=== PATIENT | female | born 1965 | race Caucasian/White ===

== ENCOUNTER 2022-05-18 23:07 | Inpatient (IN) | payer OTHER ==
[~2022-05-18] VITALS: Ht 165.1 cm; Wt 72.6 kg
[~2022-05-18 23:07] MED LIST: ETOMIDATE 20 MG/10 ML VIAL IV ONE; SUCCINYLCHOLINE CHLORIDE 200 MG/10 ML VIAL IV ONE
[2022-05-18] MEDS ORDERED: IV NORMAL SALINE 1000 ML BAG IV ONE (23:15)
[2022-05-18] MEDS ORDERED: PROCHLORPERAZINE EDISYLATE 10 MG/2 ML VIAL IV ONE (23:15)
[2022-05-18 23:35] LABS: HEMATOCRIT 38.5 % (31.2-41.9); MEAN CORPUSCULAR HEMOGLOBIN 29.6 uug (24.7-32.8); MEAN CORPUSCULAR VOLUME 89.3 fL (75.5-95.3); PLATELET COUNT (AUTO) 422 K/uL (179-408)
[2022-05-18] MEDS ORDERED: PROCHLORPERAZINE EDISYLATE 10 MG/2 ML VIAL ONE (23:39)
--- NOTE | 2022-05-18 23:42 | NUR ---
Xray at bedside.
[2022-05-18 23:55] LABS: ALANINE AMINOTRANSFERASE 21 U/L (14-59); ALKALINE PHOSPHATASE 102 U/L (50-136); ASPARTATE AMINOTRANSFERASE 13 U/L (15-37); BILIRUBIN,DIRECT 0.1 mg/dL (0.0-0.2); BILIRUBIN,TOTAL 0.2 mg/dL (0.2-1.0); CARBON DIOXIDE 28 mmol/L (21-32); CHLORIDE 102 mmol/L (98-107); CREATININE 0.9 mg/dL (0.6-1.3); GLUCOSE 198 mg/dL (74-106); POTASSIUM 3.7 mmol/L (3.5-5.1); TOTAL PROTEIN, SERUM 7.3 g/dL (6.4-8.2); UREA NITROGEN, BLOOD 16 mg/dL (7-18)
[2022-05-18 23:56] LABS: ETHANOL < 3 MG/DL (0-0)
[2022-05-18 23:57] LABS: ACETAMINOPHEN < 2.0 ug/mL (10-30)
[2022-05-19 00:11] LABS: ABG BASE EXCESS -0.6 mmol/L; ABG PH 7.286 (7.350-7.450); ABG PO2 57.4 mmHg (75.0-100.0); ABG SITE RIGHT RADIAL; ABG TOTAL HEMOGLOBIN 12.8 G/dL (12.0-16.0); COHb 2.4 % (0.5-1.5); MetHb 0.2 % (0.0-1.5); O2Hb 85.3 % (94.0-97.0); VENT MODE Nasal Cannula
[2022-05-19] MEDS ORDERED: NALOXONE HCL 0.4 MG/ML AMPUL IV ONE (00:15)
[2022-05-19] MEDS ORDERED: NALOXONE 2 MG/2 ML SYRINGE ONE (00:16)
--- NOTE | 2022-05-19 00:52 | NUR ---
Pt states unable to provide urine at this time. made aware.
[2022-05-19] MEDS ORDERED: ALBUTEROL SULFATE 2.5 MG/3 ML NEBU NEB ONE (01:15)
[2022-05-19] MEDS ORDERED: IPRATROPIUM BROMIDE 0.5 MG/2.5 ML NEBU NEB ONE (01:15)
[2022-05-19] MEDS ORDERED: IV NS 1000 ML 1,000 ML IV ONE (01:15)
[2022-05-19] MEDS ORDERED: ALBUTEROL SULFATE 2.5 MG/3 ML NEBU ONE (01:20)
[2022-05-19] MEDS ORDERED: IPRATROPIUM BROMIDE 0.5 MG/2.5 ML NEBU ONE (01:20)
[2022-05-19] MEDS ORDERED: IOHEXOL 350 100 ML INFUS..BTL ONE (02:14)
[2022-05-19] MEDS ORDERED: IV NORMAL SALINE 250 ML IV ONE (02:14)
[2022-05-19] MEDS ORDERED: SWABABLE VALVE TRANSFER SET EA MC ONE (02:14)
--- NOTE | 2022-05-19 02:32 | NUR ---
Pt out of ER for CT.
--- NOTE | 2022-05-19 02:45 | NUR ---
Pt back to ER from CT.
[2022-05-19 04:17] LABS: *BILIRUBIN,URIN NEGATIVE (NEGATIVE); *BLOOD, URINE NEGATIVE (NEGATIVE); *CLARITY,URINE CLEAR (CLEAR); *COLOR,URINE YELLOW (YELLOW); *KETONES,URINE NEGATIVE (NEGATIVE); *UROBILINOGEN,URINE 0.2 E.U./dl (NORMAL); LEUKOCYTE ESTERASE ,URINE TRACE (NEGATIVE); NITRITE, URINE NEGATIVE (NEGATIVE); UGLUCOSE NEGATIVE (NEGATIVE)
[2022-05-19 04:23] LABS: *AMPHETAMINE, URINE POSITIVE (NEGATIVE); *CANNABINOID, URINE NEGATIVE (NEGATIVE); *COCCAINE, URINE POSITIVE (NEGATIVE); *OPIATE, URINE NEGATIVE (NEGATIVE); *PHENCYCLIDINE SCREEN,URINE NEGATIVE (NEGATIVE)
[2022-05-19] MEDS ORDERED: METRONIDAZOLE 500 MG/NS 100 ML PIGGYBACK IV ONE (05:45)
[2022-05-19] MEDS ORDERED: CEFTRIAXONE 1 G in IV DEXTROSE 5% 50 ML IV ONE (05:45)
[2022-05-19] MEDS ORDERED: CEFTRIAXONE /D5W 50ML IVPB **ER PYXIS IV ONE (05:53)
--- NOTE | 2022-05-19 05:57 | NUR ---
Dr. Nesbitt on panel call with Scarlet Rowan NP.
[2022-05-19] MEDS ORDERED: METRONIDAZOLE 500 MG/NS 100ML 100 ML IV ONE (05:58)
[2022-05-19] MEDS ORDERED: IPRATROPIUM BROMIDE 0.5 MG/2.5 ML NEBU NEB PRN (06:00)
[2022-05-19] MEDS ORDERED: ALBUTEROL SULFATE 2.5 MG/ 0.5 ML NEBU NEB PRN (06:00)
[2022-05-19] MEDS ORDERED: PIPERACILLIN SODIUM/TAZOBACTAM 3.375 G in IV DEXTROSE 5% 50 ML IV SCH (06:00)
[2022-05-19] MEDS ORDERED: ENOXAPARIN SODIUM 40 MG/0.4 ML DISP.SYRIN SQ SCH (06:00)
[2022-05-19 06:10] LABS: ABG BASE EXCESS -3.4 mmol/L; ABG PCO2 76.6 mmHg (35.0-45.0); ABG PH 7.165 (7.350-7.450); ABG PO2 91.1 mmHg (75.0-100.0); ABG SITE LEFT RADIAL; ABG TOTAL HEMOGLOBIN 13.7 G/dL (12.0-16.0); COHb 1.1 % (0.5-1.5); MetHb 0.3 % (0.0-1.5); O2Hb 94.6 % (94.0-97.0); VENT MODE BIPAP; VT, ABG 219 mL
--- NOTE | 2022-05-19 06:15 | NUR ---
RT at bedside.
--- NOTE | 2022-05-19 06:24 | NUR ---
etomidate 15mg given
--- NOTE | 2022-05-19 06:25 | NUR ---
Patient was intubated by Dr. Nesbitt, ET tube 7.5 @ 21 cm right lip line. Placed on SIMV 15, Vt 500ml, Peep 5, PS 10, FIO2 50%. Addendum: 05/19/22 at 0703 by JOSELUIS DUEÑAS RT Amended: Links added.
--- NOTE | 2022-05-19 06:25 | NUR ---
Succinylcholine 100mg given
--- NOTE | 2022-05-19 06:27 | NUR ---
Pt intubated by Dr. Nesbitt.
[2022-05-19 06:41] LABS: HEMATOCRIT 38.4 % (31.2-41.9); MEAN CORPUSCULAR HEMOGLOBIN 29.3 uug (24.7-32.8); MEAN CORPUSCULAR VOLUME 89.7 fL (75.5-95.3); PLATELET COUNT (AUTO) 345 K/uL (179-408)
[2022-05-19] MEDS ORDERED: PROPOFOL 100 ML ONE ×2 (06:44→17:44)
[2022-05-19] MEDS ORDERED: PROPOFOL 100 ML IV PRN (06:45)
--- NOTE | 2022-05-19 07:14 | NUR ---
Report given to Charissa loredo.
--- NOTE | 2022-05-19 07:20 | NUR ---
Received endorsement from Kemal MCKEON
--- NOTE | 2022-05-19 07:30 | NUR ---
Increased Propofol drip from 10 to 15mcg/kg/min d/t pt's coming out of sedation and pulling of tubes. INFORMATION MANAGEMENT SPECIALIST informed.
[2022-05-19 08:16] LABS: THYROID STIMULATING HORMONE 0.845 mIU/mL (0.358-3.740)
[2022-05-19] MEDS ORDERED: PIPERACILLIN/TAZOBACTAM/D5W 50 ML IV ONE (08:55)
[2022-05-19] MEDS ORDERED: ENOXAPARIN SODIUM 40 MG/0.4 ML DISP.SYRIN SQ ONE (08:55)
[2022-05-19] MEDS ORDERED: PANTOPRAZOLE SODIUM 40 MG VIAL ONE (09:24)
[2022-05-19 09:25] LABS: ABG HCO3 26.1 mmol/L; ABG PCO2 59.9 mmHg (35.0-45.0); ABG PH 7.257 (7.350-7.450); ABG PO2 69.6 mmHg (75.0-100.0); ABG SITE RIGHT RADIAL; ABG TOTAL HEMOGLOBIN 13.2 G/dL (12.0-16.0); COHb 0.8 % (0.5-1.5); CPAP,BG 10 cmH20; MetHb 0.3 % (0.0-1.5); O2Hb 92.2 % (94.0-97.0); VENT MODE VENT - SIMV; VT, ABG 500 mL
[2022-05-19 09:32] LABS: RBC,URINE 0-3 /HPF (0-3)
[2022-05-19 09:33] LABS: BACTERIA,URINE FEW /HPF (NONE SEEN); SQUAMOUS EPITHELIAL CELL,UR FEW /HPF (NONE SEEN)
--- NOTE | 2022-05-19 09:50 | NUR ---
Received ABG results from RT, Daniella SANCHEZ notified.
[2022-05-19] MEDS: PANTOPRAZOLE SODIUM 40 MG VIAL IV SCH (09:52)
[2022-05-19] MEDS ORDERED: ALBUTEROL SULFATE 2.5 MG/3 ML NEBU NEB PRN (12:00)
--- NOTE | 2022-05-19 12:32 | NUR ---
Received new order from Daniella Ho for parikh catheter insertion.
--- NOTE | 2022-05-19 12:50 | NUR ---
Inserted f/c 18Fr. Urine specimen sent to lab.
--- NOTE | 2022-05-19 13:00 | NUR ---
Increased Propofol drip from 15 to 20 mcg/kg/hr. AUTO MECHANIC APPRENTICE notified.
[2022-05-19 13:22] LABS: *BILIRUBIN,URIN NEGATIVE (NEGATIVE); *BLOOD, URINE NEGATIVE (NEGATIVE); *CLARITY,URINE CLEAR (CLEAR); *COLOR,URINE YELLOW (YELLOW); *KETONES,URINE NEGATIVE (NEGATIVE); *UROBILINOGEN,URINE 0.2 E.U./dl (NORMAL); LEUKOCYTE ESTERASE ,URINE NEGATIVE (NEGATIVE); NITRITE, URINE NEGATIVE (NEGATIVE); UGLUCOSE NEGATIVE (NEGATIVE)
[2022-05-19 13:44] LABS: BACTERIA,URINE NONE SEEN /HPF (NONE SEEN); RBC,URINE 0-3 /HPF (0-3); SQUAMOUS EPITHELIAL CELL,UR FEW /HPF (NONE SEEN); WBC,URINE NONE SEEN /HPF (0-3)
[2022-05-19] MEDS ORDERED: METRONIDAZOLE 500 MG/NS 100ML 500 MG in PREMIXED 1 EACH IV SCH (14:00)
--- NOTE | 2022-05-19 15:13 | NUR ---
Pt's mother's tire and lube technician stated not to give pt vaccination without her consent.
--- NOTE | 2022-05-19 15:54 | NUR ---
Pt has been hypotensive, from 97/52 @1515 to 85/54 @1546. Notified Daniella Ho, received telephone order Levophed to be titrate to BP above 90 and continuous NS @ 90cc/hr.
[2022-05-19] MEDS ORDERED: NOREPINEPHRINE BITARTRATE 8 MG in IV DEXTROSE 5% 250 ML IV ONE (16:00)
[2022-05-19] MEDS ORDERED: NOREPINEPHRINE BITARTRATE 8 MG in IV NORMAL SALINE 242 ML IV PRN (16:15)
--- NOTE | 2022-05-19 17:10 | NUR ---
Pt remains intubated on CMV, Fio2 titrated to 40%. Spo2 and respirations wnl. ETT repositioned Q2. ETT/oral sxn prn. Will continue to monitor.
[2022-05-19] MEDS: IV NS 1000 ML 1,000 ML IV PRN (17:27)
[2022-05-19] MEDS: PIPERACILLIN SODIUM/TAZOBACTAM 3.375 G in IV DEXTROSE 5% 100 ML IV SCH (18:00)
--- NOTE | 2022-05-19 18:08 | NUR ---
IV Zosyn on piggyback with Propofol, compatible per pharmacist Xenia.
--- NOTE | 2022-05-19 19:09 | NUR ---
Endorsed to Aravind WOODS.
--- NOTE | 2022-05-19 22:15 | NUR ---
Emptied 650 cc urine from parikh catheter.
[2022-05-20] MEDS ORDERED: PROPOFOL 100 ML ONE ×4 (01:16→16:52)
[2022-05-20] MEDS: PIPERACILLIN SODIUM/TAZOBACTAM 3.375 G in IV DEXTROSE 5% 100 ML IV SCH ×3 (01:30→17:44)
--- NOTE | 2022-05-20 05:00 | NUR ---
Pt awoke, IV to right wrist pulled. Increased propofol to 50.
[2022-05-20 06:24] LABS: HEMATOCRIT 32.3 % (31.2-41.9); MEAN CORPUSCULAR HEMOGLOBIN 29.2 uug (24.7-32.8); MEAN CORPUSCULAR VOLUME 89.4 fL (75.5-95.3); PLATELET COUNT (AUTO) 311 K/uL (179-408)
[2022-05-20 06:40] LABS: BILIRUBIN,TOTAL 0.5 mg/dL (0.2-1.0); CREATININE 0.8 mg/dL (0.6-1.3); MAGNESIUM 1.9 mg/dL (1.8-2.4); PHOSPHOROUS 2.1 mg/dL (2.5-4.9); POTASSIUM 3.6 mmol/L (3.5-5.1)
--- NOTE | 2022-05-20 07:12 | NUR ---
Report given to Charissa loredo.
--- NOTE | 2022-05-20 07:17 | NUR ---
Received endorsement from Aravind MCKEON
[2022-05-20] MEDS: PROPOFOL 100 ML IV PRN ×4 (07:52→23:18)
[2022-05-20] MEDS ORDERED: ENOXAPARIN SODIUM 40 MG/0.4 ML DISP.SYRIN SQ ONE (09:08)
[2022-05-20] MEDS ORDERED: PANTOPRAZOLE SODIUM 40 MG VIAL ONE (09:08)
[2022-05-20] MEDS: ENOXAPARIN SODIUM 40 MG/0.4 ML DISP.SYRIN SQ SCH (09:14)
[2022-05-20] MEDS: PANTOPRAZOLE SODIUM 40 MG VIAL IV SCH (09:14)
[2022-05-20] MEDS: IV NS 1000 ML 1,000 ML IV PRN (09:21)
--- NOTE | 2022-05-20 10:11 | NUR ---
SBP >90, 151/87. Held Levophed.
--- NOTE | 2022-05-20 10:20 | NUR ---
Called RT, O2 sat to 87%. RT increased volume to 550ml and 50%. Dr. Grant ordered to increase PEEP to 8, O2 sat to 97%. Noted and carried out.
--- NOTE | 2022-05-20 10:47 | NUR ---
BP =92/48. Restarting Levophed.
[2022-05-20] MEDS ORDERED: LAMO200T10 PO (12:56)
[2022-05-20] MEDS ORDERED: ESCI10TA PO (12:56)
[2022-05-20] MEDS ORDERED: BUPR300T52 PO (12:56)
--- NOTE | 2022-05-20 13:40 | NUR ---
Seen by Daniella Ho NP. Ordered PICC Line. Informed nsg reverberatory furnace supervisor for request.
[2022-05-20] MEDS ORDERED: POTASSIUM PHOSPHATE MM 15 MMOL in IV NORMAL SALINE 250 ML IV ONE (16:45)
--- NOTE | 2022-05-20 17:01 | NUR ---
Central Line performed by Dr. Soares. Informed Consent obtained from the mother of the pt by Daniella Ho NP via phone. Will be signed by Daniella Ho when she arrives tomorrow per PRODUCTION MACHINE TENDER.
--- NOTE | 2022-05-20 17:03 | NUR ---
Central line @ the Susie zarate, patent and intact.
--- NOTE | 2022-05-20 18:53 | NUR ---
Urine Output from 7a-7p = 595ml.
--- NOTE | 2022-05-20 19:10 | NUR ---
Endorsed to Aravind WOODS.
--- NOTE | 2022-05-20 20:15 | NUR ---
Report given to Fariha WOODS CCU.
[2022-05-20 20:56] VITALS: BP 164/80
[2022-05-20 22:15] VITALS: BP 101/61
[2022-05-20 22:30] VITALS: BP 108/62
[2022-05-20 22:45] VITALS: BP 101/58
[2022-05-21] VITALS (24 sets, daily range): BP systolic 95–143; BP diastolic 56–79
[2022-05-21] MEDS: PIPERACILLIN SODIUM/TAZOBACTAM 3.375 G in IV DEXTROSE 5% 100 ML IV SCH ×3 (00:51→17:30)
[2022-05-21] MEDS: PROPOFOL 100 ML IV PRN ×6 (02:08→23:32)
[2022-05-21 06:14] LABS: CREATININE 0.7 mg/dL (0.6-1.3); PHOSPHOROUS 2.8 mg/dL (2.5-4.9); POTASSIUM 3.1 mmol/L (3.5-5.1)
--- NOTE | 2022-05-21 06:18 | NUR ---
END SHIFT SUMMARY Patient arrived on the unit via bed accompanied by RN. Patient's vital signs are stable. No sign of distress noted. Pt is intubated and sedated on propofol and has levophed for BP support. Pt remained off of levophed since she arrived on the unit and did not require BP support. Pt remained sedated on 50 mcg/kg/min propofol and awakes easily and quickly when propofol is turned off. Pt still requires 50 mcg or else she becomes severely irritated. Bed bath given to pt, some vaginal bleeding noted similar to menstrual bleeding. Pad in put in place. Otherwise, no sign of distress noted. Report endorsed to day shift RN.
[2022-05-21 06:48] LABS: HEMATOCRIT 28.7 % (31.2-41.9); MEAN CORPUSCULAR HEMOGLOBIN 30.6 uug (24.7-32.8); MEAN CORPUSCULAR VOLUME 88.9 fL (75.5-95.3); PLATELET COUNT (AUTO) 294 K/uL (179-408)
--- NOTE | 2022-05-21 07:15 | NUR ---
Received pt. on soft restrains arousable to verbal command. with oral care pt. fully awake, restless agitated, backing up ventilator, attempting to get out of bed, pulling on restrains, Throwing her BLE out of side rails. ETT 7.5, 24LL on A/C 20, TV 550, FIO2 40%, Peep +5. Hemodynamically HR in the in the NSR and quickly went up to the 120's. parikh to gravity. propofol running at 50mcg/kg/min. Will continue to monitor
--- NOTE | 2022-05-21 07:18 | NUR ---
With morning care pt. became restless agitated, backing up ventilator on BUE soft restrains pt. kicking. For pt. safety propofol increased accordingly. Attending called and notify of events, see order hx.
[2022-05-21 08:23] LABS: ABG BASE EXCESS -3.2 mmol/L; ABG HCO3 20.9 mmol/L; ABG PCO2 34.1 mmHg (35.0-45.0); ABG PH 7.405 (7.350-7.450); ABG PO2 73.5 mmHg (75.0-100.0); ABG SITE RIGHT RADIAL; ABG TOTAL HEMOGLOBIN 10.8 G/dL (12.0-16.0); COHb 0.3 % (0.5-1.5); MetHb 0.2 % (0.0-1.5); O2Hb 94.6 % (94.0-97.0); VENT MODE VENT - A/C 20; VT, ABG 550 mL
[2022-05-21] MEDS: PANTOPRAZOLE SODIUM 40 MG VIAL IV SCH (08:23)
[2022-05-21] MEDS: ENOXAPARIN SODIUM 40 MG/0.4 ML DISP.SYRIN SQ SCH (08:27)
[2022-05-21] MEDS: IV NS 1000 ML 1,000 ML IV PRN (09:43)
[2022-05-21] MEDS: POTASSIUM CHLORIDE 50 ML IV SCH ×4 (11:00→13:35)
--- NOTE | 2022-05-21 11:54 | NUR ---
Pulmonary services, Dr. Grant in the unit orders to continue with care plan received and ok to continue with propofol maximum of 100mcg/kg/min. and to start pt. on jevity at 20cc/hr increase by 10cc.hr max of 40 until seen by division field inspector.
--- NOTE | 2022-05-21 12:00 | NUR ---
Pt's mom and boyfriend at bedside at this time pt's boyfriend Donny Slade stating "no has spoken to us regarding the care plan, at this time pt. restless and agitated, and Mr. Foss questioning why pt. is not adequately sedated. Mr. Foss and Mom educated on propofol use in this particular situation, and he was updated that was called and pt. now on two medications to properly sedate her. Mr. Foss also requested a call from attending.
[2022-05-21] MEDS ORDERED: JEVITY 1.2 1000 ML LIQUID GT PRN ×2 (12:15)
--- NOTE | 2022-05-21 13:00 | NUR ---
Attending Daniella Ho in to follow up on pt. report given orders to continue with care plan received and implemented. Addendum: 05/21/22 at 1802 by DEREK SHER RN Attending also informed of Mr. Hines and pt's mom request, and I was informed at this time family was updated.
[2022-05-21] MEDS: LORAZEPAM 2 MG/1 ML VIAL IV PRN (13:49)
--- NOTE | 2022-05-21 17:56 | NUR ---
Patient adequately sedated restrains dcd as ordered.
[2022-05-22] VITALS (24 sets, daily range): BP systolic 96–142; BP diastolic 57–81
[2022-05-22] MEDS: PIPERACILLIN SODIUM/TAZOBACTAM 3.375 G in IV DEXTROSE 5% 100 ML IV SCH ×3 (01:23→16:08)
--- NOTE | 2022-05-22 01:29 | NUR ---
PATIENT ON CONT PB 840 VENT WITH 7.5 ET/TUBE IN PLACE AND SECURED WITH ANCHOR FAST, CURRENT SETTINGS, A/C 20 VT 500ML, PEEP8, FIO2 2 405, PT WITH MOSTLY CONTROLLED VENTILATION, PT IS SEDATED , SUCTIONED WHITISH TINGE SECRETIONS, AND ORAL CARE, NO VENT CHANGES MADE, CHANGE HME, ALL ALARMS GOOD, ABG ON DAY SHIFT, YAIR CLEMENT RCP Addendum: 05/22/22 at 0132 by CASIMIRO SOSA Amended: Links added. Addendum: 05/22/22 at 0358 by CASIMIRO SOSA CORRECTION FIO2 @ 40%, PEEP 8 D RACQUEL MARTELL
[2022-05-22] MEDS: PROPOFOL 100 ML IV PRN ×6 (02:06→21:34)
[2022-05-22 05:12] LABS: HEMATOCRIT 27.9 % (31.2-41.9); MEAN CORPUSCULAR HEMOGLOBIN 29.9 uug (24.7-32.8); MEAN CORPUSCULAR VOLUME 88.8 fL (75.5-95.3); PLATELET COUNT (AUTO) 280 K/uL (179-408)
[2022-05-22 05:22] LABS: CREATININE 0.6 mg/dL (0.6-1.3); POTASSIUM 3.2 mmol/L (3.5-5.1)
--- NOTE | 2022-05-22 06:00 | NUR ---
--PT CONT. WITH ETT-VENT. PT GAVIN WELL WITH POX OF 98-99%. PT GAVIN RTX AND SX WELL. PT HAS MOD OF PALE WHIT SPUT. HOB UP> 30 DEGEES.VS HAVE BEEN STABLE. AFEBRILE. S.R. PT HAS ALSO BEEN SEDATED WITH DIPRIVAN DRIP-WAS AT 90MCG/NOW IS DOWN TO 40MCG. PT GAVIN WELL. IV I/P VIA LEFT FEM.TLC. PT ALSO HAS NS IV@ 50CC/HR. AM LABS DONE. PT HAS T.FEEDG VIA NGT OF JEVITY. RESID IS 5-10CC. PT HAS F/C-U/O 450CC-DARK JANNA TO SLIGHT GRN COLOR/CLR. NO STOOL. PT HAS SCD ON BOTH LOWER EXTREMITIES. BATH AND LINEN CHANGE DONE. GEN. COND HAS BEEN STABLE/GUARDED. PT ENDORSED TO PEGGY REED. THUY WOODS
--- NOTE | 2022-05-22 07:00 | NUR ---
Recieved patient from manufacturing supervisor 2nd shift nurse. Pt was restless and agitated on 40 mcg/kg/min. pt is intubated ET tube 7.0 AC20, TV 550, FIO2 40% PEEP 8. Pt has SCDs on with OG tube with Jevity @ 30 ml/hr
[2022-05-22] MEDS: ENOXAPARIN SODIUM 40 MG/0.4 ML DISP.SYRIN SQ SCH (08:14)
[2022-05-22] MEDS: PANTOPRAZOLE SODIUM 40 MG VIAL IV SCH (08:14)
[2022-05-22 08:19] LABS: ABG BASE EXCESS -2.6 mmol/L; ABG HCO3 21.2 mmol/L; ABG PCO2 33.3 mmHg (35.0-45.0); ABG PH 7.422 (7.350-7.450); ABG PO2 85.8 mmHg (75.0-100.0); ABG SITE LEFT BRACHIAL; ABG TOTAL HEMOGLOBIN 10.9 G/dL (12.0-16.0); COHb 0.3 % (0.5-1.5); MetHb 0.2 % (0.0-1.5); O2Hb 96.3 % (94.0-97.0); VENT MODE VENT - A/C; VT, ABG 550 mL
--- NOTE | 2022-05-22 08:39 | NUR ---
pt fighting ventilator and respiratory rate increased to 50. Diprovan increased to 60 mcg/kg/hr to sedate patient.
[2022-05-22] MEDS: LORAZEPAM 2 MG/1 ML VIAL IV PRN ×2 (09:35→15:11)
[2022-05-22] MEDS: POTASSIUM CHLORIDE 50 ML IV SCH ×4 (09:35→12:58)
[2022-05-22] MEDS ORDERED: JEVITY 1.2 1000 ML LIQUID GT PRN ×2 (09:58)
--- NOTE | 2022-05-22 15:30 | NUR ---
pt is waking up and becoming agitated and restless. Ativan given and then when it was ineffective Diprovan increased to 70 mch/kg/min
--- NOTE | 2022-05-22 15:45 | NUR ---
pt is awake and fighting the ventilator and biting the ET tube and at risk for self extubation. Previous increase to 70 mcg/kg/hr ineffective. Rate increade to 90 mcg/kg/hr and pt is now adequately sedated.
--- NOTE | 2022-05-22 22:28 | NUR ---
pt transferred to room 311 with Vincent and other RN from 3rd floor
[2022-05-23] VITALS (24 sets, daily range): BP systolic 119–179; BP diastolic 72–96
[2022-05-23] MEDS: PIPERACILLIN SODIUM/TAZOBACTAM 3.375 G in IV DEXTROSE 5% 100 ML IV SCH ×3 (00:45→16:30)
[2022-05-23] MEDS: PROPOFOL 100 ML IV PRN ×4 (02:56→10:28)
[2022-05-23 05:12] LABS: HEMATOCRIT 28.1 % (31.2-41.9); MEAN CORPUSCULAR HEMOGLOBIN 29.7 uug (24.7-32.8); PLATELET COUNT (AUTO) 329 K/uL (179-408)
[2022-05-23 05:26] LABS: CREATININE 0.5 mg/dL (0.6-1.3); POTASSIUM 3.6 mmol/L (3.5-5.1)
[2022-05-23] MEDS: PANTOPRAZOLE SODIUM 40 MG VIAL IV SCH (08:24)
[2022-05-23] MEDS: ENOXAPARIN SODIUM 40 MG/0.4 ML DISP.SYRIN SQ SCH (09:00)
--- NOTE | 2022-05-23 11:09 | NUR ---
ABG drawn at bedside. On CPAP FIO2 tolerating well.
--- NOTE | 2022-05-23 12:05 | NUR ---
Opens eyes and tracks remains on CPAP tolerating well propofol decreased to 30mcgs tolerating well oxygen saturation >94% respiratory rate 30 per minute.
[2022-05-23] MEDS: CHLORDIAZEPOXIDE HCL 25 MG CAPSULE PO SCH ×2 (13:00→16:30)
[2022-05-23] MEDS: LORAZEPAM 2 MG/1 ML VIAL IV PRN ×2 (13:23→21:50)
[2022-05-23 13:40] LABS: ABG BASE EXCESS -0.6 mmol/L; ABG HCO3 22.7 mmol/L; ABG PCO2 32.4 mmHg (35.0-45.0); ABG PH 7.463 (7.350-7.450); ABG PO2 80.7 mmHg (75.0-100.0); ABG SITE LEFT BRACHIAL; ABG TOTAL HEMOGLOBIN 10.8 G/dL (12.0-16.0); COHb 0.3 % (0.5-1.5); MetHb 0.3 % (0.0-1.5); O2Hb 95.6 % (94.0-97.0); VENT MODE VENT - SIMV; VT, ABG 550 mL
[2022-05-23 13:40] LABS: ABG BASE EXCESS -0.3 mmol/L; ABG PCO2 38.4 mmHg (35.0-45.0); ABG PH 7.414 (7.350-7.450); ABG PO2 79.4 mmHg (75.0-100.0); ABG SITE LEFT RADIAL; ABG TOTAL HEMOGLOBIN 13.7 G/dL (12.0-16.0); COHb 0.4 % (0.5-1.5); MetHb 0.4 % (0.0-1.5); O2Hb 95.1 % (94.0-97.0); VENT MODE VENT - CPAP
--- NOTE | 2022-05-23 13:58 | NUR ---
Non rebreather on 15 liters calm at this time opens eyes tracks at times, delmi occasionally says "uh huh" Lethargic Ativan 2 mg IV given for restlessness and sweating. [place], warm, and dry pupils 2 and reactive to light accommodations. Moves all extremities Restraints soft wrist ordered for safety.
--- NOTE | 2022-05-23 14:12 | NUR ---
Awake but does not follow commands tracks with eyes at time. Called CEMENT RAILROAD CAR LOADER Daniella hr 115 bp 160/100 RT requesting repeat blood gas.
--- NOTE | 2022-05-23 14:18 | NUR ---
New orders for blood gas only does not want to treat b/p or heart rate at this time due to post intubation.
--- NOTE | 2022-05-23 14:19 | NUR ---
Gave 0900 Lovenox sub Q unable to sign off mar no one has witness access on unit.
[2022-05-23 15:23] LABS: ABG BASE EXCESS 0.5 mmol/L; ABG HCO3 23.8 mmol/L; ABG PCO2 34.1 mmHg (35.0-45.0); ABG PH 7.462 (7.350-7.450); ABG PO2 55.1 mmHg (75.0-100.0); ABG SITE RIGHT RADIAL; ABG TOTAL HEMOGLOBIN 12.1 G/dL (12.0-16.0); COHb 0.3 % (0.5-1.5); MetHb 0.3 % (0.0-1.5); O2Hb 90.1 % (94.0-97.0)
[2022-05-23] MEDS: IV NS 1000 ML 1,000 ML IV PRN (21:59)
[2022-05-24] VITALS (23 sets, daily range): BP systolic 79–157; BP diastolic 63–97
[2022-05-24] MEDS: PIPERACILLIN SODIUM/TAZOBACTAM 3.375 G in IV DEXTROSE 5% 100 ML IV SCH ×3 (01:02→17:16)
[2022-05-24 05:18] LABS: HEMATOCRIT 31.9 % (31.2-41.9); MEAN CORPUSCULAR HEMOGLOBIN 29.9 uug (24.7-32.8); MEAN CORPUSCULAR VOLUME 87.2 fL (75.5-95.3); PLATELET COUNT (AUTO) 329 K/uL (179-408)
[2022-05-24 05:30] LABS: CREATININE 0.5 mg/dL (0.6-1.3); POTASSIUM 3.1 mmol/L (3.5-5.1)
[2022-05-24 05:34] LABS: MAGNESIUM 1.6 mg/dL (1.8-2.4); PHOSPHOROUS 3.4 mg/dL (2.5-4.9)
--- NOTE | 2022-05-24 07:15 | NUR ---
Received pt. restless agitated, attempting to get out of bed unsupervised. On BUE soft restrains. Hemodynamically HR in the 90's sbp within desired limits. NPO. Neuro-ocampo AAOx2, but does not follow commands. Iv line to left femoral patent. Will continue with care plan.
[2022-05-24] MEDS: PANTOPRAZOLE SODIUM 40 MG VIAL IV SCH (08:06)
[2022-05-24] MEDS: CHLORDIAZEPOXIDE HCL 25 MG CAPSULE PO SCH ×3 (08:11→17:17)
[2022-05-24] MEDS: ENOXAPARIN SODIUM 40 MG/0.4 ML DISP.SYRIN SQ SCH (08:12)
[2022-05-24] MEDS ORDERED: IPRATROPIUM BROMIDE 0.5 MG/2.5 ML NEBU NEB PRN (10:00)
[2022-05-24] MEDS ORDERED: ALBUTEROL SULFATE 2.5 MG/3 ML NEBU NEB PRN (10:00)
[2022-05-24] MEDS: POTASSIUM CHLORIDE 50 ML IV SCH ×4 (10:06→12:51)
[2022-05-24 10:08] LABS: ABG BASE EXCESS -0.5 mmol/L; ABG HCO3 21.3 mmol/L; ABG PCO2 26.6 mmHg (35.0-45.0); ABG PH 7.521 (7.350-7.450); ABG PO2 103.8 mmHg (75.0-100.0); ABG SITE LEFT BRACHIAL; ABG TOTAL HEMOGLOBIN 11.4 G/dL (12.0-16.0); COHb 0.3 % (0.5-1.5); MetHb 0.4 % (0.0-1.5); O2Hb 97.4 % (94.0-97.0); VENT MODE Nasal Cannula
[2022-05-24] MEDS: ALBUTEROL SULFATE 2.5 MG/3 ML NEBU NEB SCH ×3 (10:29→21:12)
[2022-05-24] MEDS: IPRATROPIUM BROMIDE 0.5 MG/2.5 ML NEBU NEB SCH ×3 (10:29→21:11)
[2022-05-24] MEDS: MAGNESIUM SULFATE/D5W 100 ML IV SCH ×2 (13:51→14:45)
--- NOTE | 2022-05-24 14:02 | NUR ---
2Call to follow up on needed Swallow evaluation for ccu1 who was extubated. I was informed that "we have no staff to perform the assessment at this moment" suggestions to perform one at bedside by nurse. Patient remains slightly restless and agitated. Attending will be contact to obtain approval for bedside-nurse swallow eval.
--- NOTE | 2022-05-24 14:32 | NUR ---
Attending Ok to proceed with nursing bed-side swallow, evaluation.
--- NOTE | 2022-05-24 17:04 | NUR ---
Swallow evaluation done attending notified orders received.
[2022-05-25] VITALS (20 sets, daily range): BP systolic 110–161; BP diastolic 45–93
--- NOTE | 2022-05-25 00:23 | NUR ---
Received patient in bed resting quietly. She is alert and oriented X 3. Day shift RN reported that she had very little appetite and only ate ice cream for dinner. She is cooperative with her care. PM meds given and pt is awaiting transfer to the Med Surg floor. Patient is asleep. Report endorsed to executive sous chef. Patient transferred via bed to Room 303 accompanied by Elvira Sommers RN at 0025 Vital signs stable.
[2022-05-25] MEDS: PIPERACILLIN SODIUM/TAZOBACTAM 3.375 G in IV DEXTROSE 5% 100 ML IV SCH ×3 (01:10→16:19)
[2022-05-25 04:38] LABS: BAND % (MANUAL) 3 % (0-10); NEUTROPHILS % (MANUAL) 60 % (42-75)
[2022-05-25 04:39] LABS: LYMPHOCYTES % (MANUAL) 25 % (20-40); MONOCYTES % (MANUAL) 18 % (2-10)
[2022-05-25 05:13] LABS: HEMATOCRIT 34.1 % (31.2-41.9); MEAN CORPUSCULAR HEMOGLOBIN 29.1 uug (24.7-32.8); MEAN CORPUSCULAR VOLUME 87.6 fL (75.5-95.3); PLATELET COUNT (AUTO) 365 K/uL (179-408)
[2022-05-25 05:31] LABS: CREATININE 0.6 mg/dL (0.6-1.3); POTASSIUM 3.2 mmol/L (3.5-5.1)
[2022-05-25 05:33] LABS: PHOSPHOROUS 3.7 mg/dL (2.5-4.9)
[2022-05-25] MEDS: ALBUTEROL SULFATE 2.5 MG/3 ML NEBU NEB SCH ×4 (07:33→20:45)
[2022-05-25] MEDS: IPRATROPIUM BROMIDE 0.5 MG/2.5 ML NEBU NEB SCH ×4 (07:33→20:50)
[2022-05-25] MEDS: CHLORDIAZEPOXIDE HCL 25 MG CAPSULE PO SCH (09:00)
[2022-05-25] MEDS: PANTOPRAZOLE SODIUM 40 MG VIAL IV SCH (09:00)
[2022-05-25] MEDS: ENOXAPARIN SODIUM 40 MG/0.4 ML DISP.SYRIN SQ SCH (09:02)
[2022-05-25] MEDS ORDERED: POTASSIUM CHLORIDE 20 MEQ TAB.PRT.SR PO ONE (09:30)
[2022-05-25 10:49] LABS: ABG BASE EXCESS 0.1 mmol/L; ABG HCO3 22.8 mmol/L; ABG PCO2 30.7 mmHg (35.0-45.0); ABG PH 7.488 (7.350-7.450); ABG PO2 74.9 mmHg (75.0-100.0); ABG SITE LEFT RADIAL; ABG TOTAL HEMOGLOBIN 12.1 G/dL (12.0-16.0); COHb 0.6 % (0.5-1.5); MetHb 0.2 % (0.0-1.5); O2Hb 95.2 % (94.0-97.0); VENT MODE Nasal Cannula
[2022-05-25] MEDS ORDERED: CHLORDIAZEPOXIDE HCL 25 MG CAPSULE PO PRN (11:00)
[2022-05-25] MEDS: IV NS 1000 ML 1,000 ML IV PRN ×2 (17:46→19:01)
--- NOTE | 2022-05-25 18:30 | NUR ---
patient transferred to telemetry room 309.report given to receiving nurse.
--- NOTE | 2022-05-25 19:59 | NUR ---
RECEIVED REPORT FROM PEGGY ESQUIVEL FROM CCU. PATIENT IS ALERT AND ORIENTED X3-4 WITH PERIODS OF NON-COMPLIANCE WITH CARE. RN EDUCATES, REASSURES, AND ENCOURAGES PATIENT TO CONTINUE TO BE COMPLIANT WITH HER CARE. PATIENT VERBALIZES UNDERSTANDING AND AGREEABLE TO CARE. PATIENT TOLERATES FLUID WELL. PATIENT HAS DE DIOS CATHETER IN PLACE. DE DIOS CATHETER PATENT AND DRAINING. RN ORIENTED THE PATIENT TO THE UNIT. ALL QUESTIONS ANSWERED. UPON STANDING, PATIENT NOTED TO HAVE DIFFICULTY GETTING UP, REQUIRING TWO PERSON ASSIST TO STAND. IV FLUIDS STARTED. INITIATED FALL PRECAUTIONS; BED IN LOWEST POSITION AND BED ALARM ACTIVE. NO SIGNS AND SYMPTOMS OF ACUTE DISTRESS. PATIENT ANXIOUS, BUT RN REASSURED PATIENT. ALL NEEDS MET AT THIS TIME. ENDORSED CARE TO PEGGY AVALOS.
[2022-05-26 00:39] VITALS: BP 127/71
[2022-05-26] MEDS: PIPERACILLIN SODIUM/TAZOBACTAM 3.375 G in IV DEXTROSE 5% 100 ML IV SCH ×3 (00:49→17:19)
[2022-05-26 04:16] VITALS: BP 117/70
[2022-05-26] MEDS: PANTOPRAZOLE SODIUM 40 MG TABLET.DR PO SCH (06:18)
[2022-05-26 06:27] LABS: MEAN CORPUSCULAR HEMOGLOBIN 29.1 uug (24.7-32.8); PLATELET COUNT (AUTO) 423 K/uL (179-408)
[2022-05-26 06:54] LABS: CREATININE 0.5 mg/dL (0.6-1.3); POTASSIUM 3.3 mmol/L (3.5-5.1)
[2022-05-26] MEDS: IPRATROPIUM BROMIDE 0.5 MG/2.5 ML NEBU NEB SCH ×4 (07:35→20:01)
[2022-05-26] MEDS: ALBUTEROL SULFATE 2.5 MG/3 ML NEBU NEB SCH ×4 (07:35→20:01)
[2022-05-26] MEDS ORDERED: POTASSIUM CHLORIDE 20 MEQ TAB.PRT.SR PO ONE (09:45)
[2022-05-26] MEDS: ENOXAPARIN SODIUM 40 MG/0.4 ML DISP.SYRIN SQ SCH (09:48)
[2022-05-26 11:41] VITALS: BP 136/77
[2022-05-26 15:45] VITALS: BP 104/66
[2022-05-26] MEDS: IV NS 1000 ML 1,000 ML IV PRN (16:17)
[2022-05-26] MEDS: GLUCERNA SHAKE 237 ML CAN PO SCH (17:19)
--- NOTE | 2022-05-26 19:40 | NUR ---
Received report from Day shift. Pt is A&Ox3 and is cooperative. She speaks in a slurred, but, clear state. Pt on 3L of O2. Safety measures in place. Will continue to monitor.
[2022-05-26 20:00] VITALS: BP 112/74
[2022-05-27] VITALS: BP 113/67
[2022-05-27] MEDS: PIPERACILLIN SODIUM/TAZOBACTAM 3.375 G in IV DEXTROSE 5% 100 ML IV SCH ×3 (00:11→12:32)
[2022-05-27] MEDS: IV NS 1000 ML 1,000 ML IV PRN (01:09)
[2022-05-27] MEDS: PANTOPRAZOLE SODIUM 40 MG TABLET.DR PO SCH ×2 (06:12→12:32)
--- NOTE | 2022-05-27 07:08 | NUR ---
End of shift note: Pt is A&Ox3 and is coordinated. Pt had Vasquez D/C and had a BM. Pt on 3L of O2 NC. Safety measures in place.
[2022-05-27] MEDS: ALBUTEROL SULFATE 2.5 MG/3 ML NEBU NEB SCH ×4 (07:22→19:20)
[2022-05-27] MEDS: IPRATROPIUM BROMIDE 0.5 MG/2.5 ML NEBU NEB SCH ×4 (07:22→19:20)
[2022-05-27 07:55] LABS: HEMATOCRIT 34.8 % (31.2-41.9); MEAN CORPUSCULAR HEMOGLOBIN 29.2 uug (24.7-32.8); MEAN CORPUSCULAR VOLUME 88.1 fL (75.5-95.3); PLATELET COUNT (AUTO) 476 K/uL (179-408)
[2022-05-27 08:05] LABS: CREATININE 0.6 mg/dL (0.6-1.3); POTASSIUM 3.4 mmol/L (3.5-5.1)
[2022-05-27 08:53] LABS: MAGNESIUM 1.9 mg/dL (1.8-2.4); PHOSPHOROUS 4.1 mg/dL (2.5-4.9)
[2022-05-27 10:00] VITALS: BP 110/77
[2022-05-27] MEDS ORDERED: POTASSIUM CHLORIDE 20 MEQ TAB.PRT.SR PO ONE ×2 (10:00→23:15)
--- NOTE | 2022-05-27 10:00 | NUR ---
PT IS IN BED AND IS IN NO APPARENT DISTRESS. PT IS AT THE BEDSIDE. PER PT PATIENT STATED THAT SHE WANTS TO WALK. PT IN PROGRESS, Addendum: 05/27/22 at 2216 by REGISTRY [facility] INPATIENTRN9 RN LATE ENTRY ASSSED MADE AT 1000
--- NOTE | 2022-05-27 12:00 | NUR ---
PT TOLERATES MEAL APPETITE IS POOR. ASSIST PATIEN TO AND FROM BATH ROOM. PT REQUIRES DIOGO OF 1 PERSON.
[2022-05-27 12:03] VITALS: BP 129/72
[2022-05-27] MEDS: ENOXAPARIN SODIUM 40 MG/0.4 ML DISP.SYRIN SQ SCH (12:35)
[2022-05-27] MEDS: GLUCERNA SHAKE 237 ML CAN PO SCH ×2 (14:57→17:00)
[2022-05-27 16:14] VITALS: BP 123/79
[2022-05-27 20:00] VITALS: BP 119/63
--- NOTE | 2022-05-27 22:07 | NUR ---
KDUR NOT GIVEN ENDORSED TO NIGHT RN TO ADMINISTER.
--- NOTE | 2022-05-27 23:15 | NUR ---
potassium not given during the day will give now
[2022-05-28] VITALS: BP 116/69
[2022-05-28] MEDS: PIPERACILLIN SODIUM/TAZOBACTAM 3.375 G in IV DEXTROSE 5% 100 ML IV SCH ×2 (00:12→08:31)
[2022-05-28] MEDS: IV NS 1000 ML 1,000 ML IV PRN (07:30)
--- NOTE | 2022-05-28 07:30 | NUR ---
report given to sha chacon
[2022-05-28] MEDS: ALBUTEROL SULFATE 2.5 MG/3 ML NEBU NEB SCH ×2 (07:35→10:59)
[2022-05-28] MEDS: IPRATROPIUM BROMIDE 0.5 MG/2.5 ML NEBU NEB SCH ×2 (07:35→10:59)
[2022-05-28 08:05] LABS: CREATININE 0.7 mg/dL (0.6-1.3); HEMATOCRIT 37.6 % (31.2-41.9); MEAN CORPUSCULAR HEMOGLOBIN 29.6 uug (24.7-32.8); MEAN CORPUSCULAR VOLUME 88.5 fL (75.5-95.3); PLATELET COUNT (AUTO) 583 K/uL (179-408); POTASSIUM 3.6 mmol/L (3.5-5.1)
[2022-05-28] MEDS: GLUCERNA SHAKE 237 ML CAN PO SCH (08:15)
[2022-05-28] MEDS: ENOXAPARIN SODIUM 40 MG/0.4 ML DISP.SYRIN SQ SCH (08:31)
[2022-05-28 11:29] VITALS: BP 121/80
[2022-05-28] MEDS ORDERED: AMOX-430 PO (13:06)
[2022-05-28] MEDS ORDERED: ALBU18HF2 INH (13:06)
--- NOTE | 2022-05-28 13:30 | NUR ---
PATIENT SEEN BY ANTHONY TAMAYO WITH ORDER TO DISCHARGE HOME TODAY.SISTER JENNIFER AND MOM AT THE BEDSIDE PER JENNIFER SHE WILL BE ABLE TO TAKE PATIENT HOME WILL PREPARE DISCHARGE PAPERS
--- NOTE | 2022-05-28 15:00 | NUR ---
PATIENT DISCHARGED PICKED UP BY HER SISTER JENNIFER WITH DISCHARGE INSTRUCTIONS AND PATIENT INSTRUCTED TO DETHISTLER OPERATOR HER MEDICATIONS FROM HER PRIVATE PHARMACY AND TO TAKE HER MEDICATIONS ORDERED AND TO MAKE AN APPOINTMENT FOR A FOLLOW UP WITH HER PSYCHIATRIST AND SHE EXPRESSED UNDERSTANDING.
== END 2022-05-28 15:00 | disposition home health service (06) | DRG 816 ==
LOC: ER 23:07 → TRANSITION 05-19 11:44 → OBSER 05-20 20:05 → CSC2 05-20 20:24 → OBSER 05-20 20:29 → CCU 05-20 20:54 → TELE3 05-25 18:33 → MEDSURG3 05-28 11:45
PROVIDERS: ADMIT Nurse Practitioner Acute Care; ATTEND Nurse Practitioner Acute Care
PROC: 5A1955Z Respiratory Ventilation, Greater than 96 Consecutive Hours (ICD-10-PCS; principal; 2022-05-19)
PROC: 0BH17EZ Insertion of Endotracheal Airway into Trachea, Via Natural or Artificial Opening (ICD-10-PCS; principal; 2022-05-19)
PROC: 5A09357 Assistance with Respiratory Ventilation, Less than 24 Consecutive Hours, Continuous Positive Airway Pressure (ICD-10-PCS; principal; 2022-05-19)
PROC: B54CZZA Ultrasonography of Left Lower Extremity Veins, Guidance (ICD-10-PCS; 2022-05-20)
PROC: 06HN33Z Insertion of Infusion Device into Left Femoral Vein, Percutaneous Approach (ICD-10-PCS; 2022-05-20)
PROC: 05H533Z Insertion of Infusion Device into Right Subclavian Vein, Percutaneous Approach (ICD-10-PCS; 2022-05-25)
PROC: B546ZZA Ultrasonography of Right Subclavian Vein, Guidance (ICD-10-PCS; 2022-05-25)
DX: T40.5X1A Poisoning by cocaine, accidental (unintentional), initial encounter (principal); J96.00 Acute respiratory failure, unspecified whether with hypoxia or hypercapnia; J69.0 Pneumonitis due to inhalation of food and vomit; G92.8 Other toxic encephalopathy; A41.9 Sepsis, unspecified organism; T43.621A Poisoning by amphetamines, accidental (unintentional), initial encounter; E87.29 Other acidosis; D64.9 Anemia, unspecified; F17.210 Nicotine dependence, cigarettes, uncomplicated; J98.11 Atelectasis; K76.9 Liver disease, unspecified; F39 Unspecified mood [affective] disorder; F19.10 Other psychoactive substance abuse, uncomplicated; Y92.89 Other specified places as the place of occurrence of the external cause
CPT/HCPCS: 36415; 36600; 70030-TC; 71045; 71275; 82803; 83605; 83735; 84100; 84443; 84478; 84484; 85025; 93005; 94002; 94003; 94640; 94664; A4663; A6209; C1758; C9113; G0378; G0480; J0330; J0696; J0780; J1650; J2060; J2310; J2543; J3475; J3480; J3490; J3590; J7040; Q9967